=== PATIENT | female | born 1945 | race Caucasian/White ===

== ENCOUNTER 2016-10-26 10:44 | Inpatient (IN) ==
[2016-10-26] MEDS ORDERED: traMADol 50 MG TABLET PO PRN (11:36)
[2016-10-26] MEDS ORDERED: *HR* OxyCODONE Immed Rel 5 MG TABLET PO PRN ×2 (12:09)
[2016-10-26] MEDS: Metoprolol XL (24 HR) Succ 50 MG TAB.ER.24H PO SCH (13:50)
--- NOTE | 2016-10-26 15:52 | Internal Med History&Physical ---
Date of Encounter: 10/26/16 Time of Encounter: 15:25 Assessment and Plan (1) Arthritis of left knee Current visit: No Status: Acute Status post left TKR 10/23/2016. Continue therapy preventions (2) Hypertension Current visit: No Status: Chronic Continue metoprolol, Minipress and lisinopril. Qualifiers: Hypertension type: unspecified secondary hypertension Qualified Code(s): I15.9 - Secondary hypertension, unspecified; I15 - Secondary hypertension (3) Chronic renal failure, stage 3 (moderate) Current visit: No Status: Chronic We will monitor renal indices. (4) Acute blood loss anemia Current visit: No Status: Acute Preop hemoglobin was normal. Will discontinue aspirin and use Lovenox for DVT prophylaxis. Internal Medicine - H&P: HPI Chief complaint: Left knee replacement Admitted From: Hospital to Hospital Transfer Plans for Post Hospital Care: Home History of present illness: Ms. Parks is a 71 year old female who underwent left total knee replacement at [facility] 10/23/2016. Postop course was unremarkable and she was admitted to [facility] swing bed for rehabilitation therapy prior to returning home. Her orthopedic history is significant for diagnosis of gout. She denies previous orthopedic surgery. Past Med Surg Social Fam HX - Past Medical History Medical history: hypertension, renal disease Psychiatric history: no psych history - Past Surgical History Surgical History: orthopedic, other - Social History Smoking Status: Never smoker Smokeless Tobacco Status: No Alcohol use: none Drug use: none Internal Medicine - H&P: Meds Allopurinol [Zyloprim 100 MG] 100 mg PO BID 10/23/16 [History] Aspirin Enteric Coated [Aspirin EC] 325 mg PO DAILY #21 tablet. 10/23/16 [Rx] Calcium Carbonate/Vitamin D3 [Calcium 600 + Vit D Tablet] 1 tab PO DAILY [History] Cetirizine HCl [All Day Allergy] 10 mg PO DAILY 10/23/16 [History] Furosemide [Lasix] 20 mg PO DAILY PRN 10/23/16 [History] Metoprolol XL (24 HR) Succ [Toprol Xl] 50 mg PO 1200 10/23/16 [History] Prazosin HCl [Minipress] 2 mg PO BID 10/23/16 [History] Quinapril HCl [Accupril] 10 mg PO HS 10/23/16 [History] Tramadol HCl [Ultram] 50 mg PO TID PRN #30 tab 10/26/16 [Rx] Allergies latex Allergy (Verified 10/23/16 09:54) Hives TESTED NEGATIVE All Systems PM: A 10-system review of systems was performed and is negative for pertinent findings except as documented above in the HPI. Review of systems: Review of systems is obtained primarily from the family since the patient is lethargic. Gen.: Her weight has increased approximately 25 pounds in the past year felt to be due to inactivity Cardiovascular: She has history of hypertension but no known [place] heart failure angina DVT or pulmonary embolus Respiratory: She is a lifelong nonsmoker and has no known chronic lung disease GI: She denies disorders of her liver or exocrine pancreas. She has had cholecystectomy. 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 She has stress incontinence. She denies other kidney or bladder disorders. Neurologic: She denies large distribution strokes or seizures. Endocrine: She denies diabetes or thyroid disease or hyperlipidemia Hematology/oncology: She denies blood disorders cancers or anemia Psychiatric: She denies anxiety depression or other mental health issues Musk skeletal: As per history of present illness - Constitutional Vitals: Temp Pulse Resp BP Pulse Ox 99.8 F H 84 20 167/87 91 10/26/16 15:26 10/26/16 15:26 10/26/16 15:26 10/26/16 15:26 10/26/16 15:26 Exam: Gen.: She is a well-developed obese female who is lying in bed and appears in no acute distress HEENT: Head is atraumatic and normocephalic. Eyes: EOMI. There is no scleral icterus. Mouth: Mucosa is moist. Neck: Supple and nontender. There is no thyromegaly or adenopathy noted. Heart: Regular without murmurs gallops or ectopics. Lungs: No wheezes or crackles are heard. Abdomen: She has a large abdomen. It is nontender to palpation. Extremities: She is wearing a left knee immobilizer. She has trace to 1+ edema of the dorsum of the feet bilaterally. Dorsalis pedis and posterior tibial pulses are nonpalpable. Neurologic: Mental status: She is lethargic. She does awaken and answers a few questions correctly. Cranial nerves: Smile is symmetric. Forehead wrinkles bilaterally. Tongue protrudes midline. EOMI. Motor: There is no pronator drift. Cerebellar: Finger to nose is intact bilaterally. Skin: Warm and dry
[2016-10-26] MEDS: Cholecalciferol (D-3) 1,000 UNIT TABLET PO SCH (16:18)
[2016-10-26] MEDS: MOM Conc 10 ML UD.LIQ PO SCH (16:18)
[2016-10-26 17:35] LABS: Bilirubin,Urine Negative (Negative); Blood,Urine Moderate (Negative); Clarity,Urine Clear (Clear); Color,Urine Yellow (Yellow); Glucose,Urine (UA) Normal (Normal); Ketones,Urine Negative (Negative); Leukocyte Esterase,Urine Negative (Negative); Nitrite,Urine Negative (Negative); PH,Urine 5.5 pH Units (5.0-8.0); Protein,Urine 30 mg/dL (Neg-Trace); Urobilinogen,Urine Normal (Normal)
[2016-10-26 18:13] LABS: Amorphous Sediment,Urine Few (Few); Hyaline Casts,Urine Few per lpf (None-Few); Renal Epithelial Cells,Urine Few per hpf (None-Few); Squamous Epithelial Cell,Urine Few per lpf (None-Few); WBC,Urine 0-3 per hpf (0-3)
[2016-10-26] MEDS: *HR* Enoxaparin 30 MG/0.3 ML SYRINGE SQ SCH (21:06)
[2016-10-27 06:10] LABS: Basophils % 0.4 %; Eosinophils # 0.3 K/mcL (0.0-0.6); Eosinophils % 3.2 %; Hematocrit 25.5 % (35.3-44.9); Hemoglobin 8.5 g/dL (11.5-15.4); Immature Granulocytes % 0.6 % (0-4); Lymphocytes # 1.3 K/mcL (0.6-4.6); Lymphocytes % 12.1 %; Mean Corpuscular HGB Conc 33.3 g/dL (31.6-35.5); Mean Corpuscular Hemoglobin 31.1 pg (28.0-33.3); Mean Corpuscular Volume 93.4 fL (83.0-100.0); Mean Platelet Volume 10.2 fL (9.4-12.4); Monocytes # 1.1 K/mcL (0.0-1.3); Monocytes % 10.6 %; Neutrophils # 7.9 K/mcL (1.6-8.9); Platelet Count 318 K/mcL (140-400); Red Blood Count 2.73 M/mcL (3.82-4.97); Red Cell Distribution Width 14.9 % (11.5-14.5); Segmented Neutrophils % 73.1 %
[2016-10-27] MEDS: *HR* Enoxaparin 30 MG/0.3 ML SYRINGE SQ SCH ×2 (06:31→20:00)
[2016-10-27] MEDS ORDERED: traMADol 50 MG TABLET PO ONE (08:45)
[2016-10-27] MEDS: Cholecalciferol (D-3) 1,000 UNIT TABLET PO SCH (08:49)
[2016-10-27] MEDS: Loratadine 10 MG TABLET PO SCH (08:49)
[2016-10-27] MEDS ORDERED: NON-FORMULARY MEDICATION 1 EACH EACH (Calcium Carbonate/Vitamin D3 [Calcium 600 + Vit D Ta PO SCH (09:00)
[2016-10-27] MEDS ORDERED: Aspirin Enteric Coated 325 MG Tablet PO SCH (09:00)
[2016-10-27 10:18] LABS: % Iron Saturation 8 % (15-50); Iron 16 mcg/dL (50-170); Transferrin 139 mg/dL (180-382)
[2016-10-27 11:06] LABS: Ferritin 382 ng/ml (5-204)
[2016-10-27] MEDS: Metoprolol XL (24 HR) Succ 50 MG TAB.ER.24H PO SCH (11:29)
[2016-10-27] MEDS: traMADol 50 MG TABLET PO PRN (16:58)
[2016-10-28] MEDS: traMADol 50 MG TABLET PO PRN ×2 (08:39→15:14)
[2016-10-28] MEDS: Cholecalciferol (D-3) 1,000 UNIT TABLET PO SCH (08:39)
[2016-10-28] MEDS: Loratadine 10 MG TABLET PO SCH (08:39)
[2016-10-28] MEDS: Metoprolol XL (24 HR) Succ 50 MG TAB.ER.24H PO SCH (11:59)
[2016-10-28] MEDS: MOM Conc 10 ML UD.LIQ PO SCH (15:14)
[2016-10-29 05:41] LABS: Basophils # 0.1 K/mcL (0.0-0.2); Basophils % 0.8 %; Eosinophils # 0.3 K/mcL (0.0-0.6); Eosinophils % 3.6 %; Hematocrit 27.6 % (35.3-44.9); Hemoglobin 8.8 g/dL (11.5-15.4); Immature Granulocytes % 0.8 % (0-4); Lymphocytes # 1.5 K/mcL (0.6-4.6); Lymphocytes % 17.4 %; Mean Corpuscular HGB Conc 31.9 g/dL (31.6-35.5); Mean Corpuscular Hemoglobin 30.8 pg (28.0-33.3); Mean Corpuscular Volume 96.5 fL (83.0-100.0); Mean Platelet Volume 10.2 fL (9.4-12.4); Monocytes # 0.9 K/mcL (0.0-1.3); Monocytes % 10.3 %; Neutrophils # 5.7 K/mcL (1.6-8.9); Platelet Count 358 K/mcL (140-400); Red Blood Count 2.86 M/mcL (3.82-4.97); Red Cell Distribution Width 15.1 % (11.5-14.5); Segmented Neutrophils % 67.1 %
[2016-10-29] MEDS: Furosemide 20 MG TABLET PO PRN (05:53)
[2016-10-29] MEDS: *HR* Enoxaparin 40 MG/0.4 ML SYRINGE SQ SCH (05:53)
[2016-10-29] MEDS: traMADol 50 MG TABLET PO PRN ×3 (08:23→21:03)
[2016-10-29] MEDS: Loratadine 10 MG TABLET PO SCH (08:24)
[2016-10-29] MEDS: Cholecalciferol (D-3) 1,000 UNIT TABLET PO SCH (08:24)
[2016-10-29] MEDS: Metoprolol XL (24 HR) Succ 50 MG TAB.ER.24H PO SCH (12:56)
[2016-10-30] MEDS: traMADol 50 MG TABLET PO PRN (04:22)
[2016-10-30] MEDS: *HR* Enoxaparin 40 MG/0.4 ML SYRINGE SQ SCH (04:22)
[2016-10-30] MEDS: MOM Conc 10 ML UD.LIQ PO SCH (09:42)
[2016-10-30] MEDS: Cholecalciferol (D-3) 1,000 UNIT TABLET PO SCH (09:42)
[2016-10-30] MEDS: Loratadine 10 MG TABLET PO SCH (09:43)
[2016-10-30] MEDS: *HR* HYDROcodone/Acet 5/325 mg TABLET PO PRN ×2 (09:45→18:29)
[2016-10-30] MEDS: Metoprolol XL (24 HR) Succ 50 MG TAB.ER.24H PO SCH (12:27)
[2016-10-30] MEDS: *HR* Enoxaparin 30 MG/0.3 ML SYRINGE SQ SCH (16:37)
--- NOTE | 2016-10-30 16:57 | Internal Med Progress Note ---
Date of Encounter: 10/30/16 Time of Encounter: 16:45 - Assessment and plan (1) Arthritis of left knee Current Visit: No Status: Acute Assessment and plan: October 30. Status post left TKR 10/23/2016. Continue therapy interventions and analgesics. (2) Hypertension Current Visit: No Status: Chronic Assessment and plan: October 30. Continue metoprolol, Minipress, and lisinopril Qualifiers: Hypertension type: unspecified secondary hypertension Qualified Code(s): I15.9 - Secondary hypertension, unspecified; I15 - Secondary hypertension (3) Chronic renal failure, stage 3 (moderate) Current Visit: No Status: Chronic Assessment and plan: October 30. We will recheck renal indices in the a.m. (4) Acute blood loss anemia Current Visit: No Status: Acute Assessment and plan: October 30. We will check labs in a.m. - Subjective Interval history: October 30. She has no new complaints. The Kiran catheter remains in place after she was found to have postvoid residual more than 1000 mL on October 26. She was changed to [place] today for left knee pain control. - Constitutional Vitals: Temp Pulse Resp BP Pulse Ox 98.0 F 58 16 120/58 94 10/30/16 09:08 10/30/16 13:08 10/30/16 13:08 10/30/16 13:08 10/30/16 13:08 Exam: She is resting comfortably in bed eating supper. She has trace to 1+ edema of the dorsum of feet and lower legs bilaterally. Her affect is cheerful overall. I reviewed her medications and lab results. Internal Medicine: Result - Labs CBC & Chem 7: 10/29/16 05:08 Consult Discharge Plan - Plan Referrals: NO,PCP [Primary Care Provider] - 1 week
[2016-10-30] MEDS ORDERED: Mag Hydrox/Al Hydrox/Simeth 30 ML UDC PO PRN (18:13)
[2016-10-30] MEDS ORDERED: Ondansetron ODT 4 MG TAB.RAPDIS SL PRN (19:47)
[2016-10-31] MEDS: *HR* HYDROcodone/Acet 5/325 mg TABLET PO PRN ×4 (02:17→20:39)
[2016-10-31] MEDS: *HR* Enoxaparin 30 MG/0.3 ML SYRINGE SQ SCH ×2 (02:17→17:21)
[2016-10-31 07:14] LABS: Basophils # 0.1 K/mcL (0.0-0.2); Basophils % 0.7 %; Eosinophils # 0.3 K/mcL (0.0-0.6); Eosinophils % 3.6 %; Hematocrit 29.3 % (35.3-44.9); Hemoglobin 9.3 g/dL (11.5-15.4); Immature Granulocytes % 0.7 % (0-4); Lymphocytes # 1.6 K/mcL (0.6-4.6); Mean Corpuscular HGB Conc 31.7 g/dL (31.6-35.5); Mean Corpuscular Hemoglobin 30.3 pg (28.0-33.3); Mean Corpuscular Volume 95.4 fL (83.0-100.0); Mean Platelet Volume 9.7 fL (9.4-12.4); Monocytes # 0.7 K/mcL (0.0-1.3); Monocytes % 7.5 %; Platelet Count 428 K/mcL (140-400); Red Blood Count 3.07 M/mcL (3.82-4.97); Red Cell Distribution Width 14.8 % (11.5-14.5); Segmented Neutrophils % 69.5 %
[2016-10-31] MEDS: Loratadine 10 MG TABLET PO SCH (08:08)
[2016-10-31] MEDS: Furosemide 20 MG TABLET PO PRN (08:08)
[2016-10-31] MEDS: Cholecalciferol (D-3) 1,000 UNIT TABLET PO SCH (08:09)
[2016-10-31 09:46] LABS: Alanine Aminotransferase 48 Units/L (0-55); Albumin 2.7 g/dL (3.5-5.0); Albumin/Globulin Ratio 0.8 (1.1-2.2); Alkaline Phosphatase 163 Units/L (38-126); Aspartate Amino Transferase 48 Units/L (5-34); BUN/Creatinine Ratio 24 (6-26); Bilirubin,Total 0.8 mg/dL (0.2-1.2); Blood Urea Nitrogen 24 mg/dL (7-20); Calcium 9.3 mg/dL (8.6-10.8); Carbon Dioxide 28 mEq/L (19-29); Chloride 103 mEq/L (98-109); Globulin 3.3 g/dL (2.4-3.5); Glucose 104 mg/dL (70-99); Osmolality,Calculated 292 (280-300); Potassium 4.6 mEq/L (3.5-4.5); Sodium 139 mEq/L (136-145); Uric Acid 5.1 mg/dL (2.6-6.0); eGFR For African Americans > 60 (> 60); eGFR For Non-African Americans 54 (> 60)
[2016-10-31] MEDS: Metoprolol XL (24 HR) Succ 50 MG TAB.ER.24H PO SCH (12:11)
[2016-11-01] MEDS: *HR* HYDROcodone/Acet 5/325 mg TABLET PO PRN ×3 (01:00→12:53)
[2016-11-01] MEDS: MOM Conc 10 ML UD.LIQ PO SCH (09:36)
[2016-11-01] MEDS: Cholecalciferol (D-3) 1,000 UNIT TABLET PO SCH (09:37)
[2016-11-01] MEDS: Loratadine 10 MG TABLET PO SCH (09:37)
[2016-11-01] MEDS: *HR* Enoxaparin 30 MG/0.3 ML SYRINGE SQ SCH ×3 (09:46→18:05)
[2016-11-01] MEDS: Metoprolol XL (24 HR) Succ 50 MG TAB.ER.24H PO SCH (12:52)
[2016-11-01] MEDS: Methyl Salicylate/Menthol 28 GM TUBE TP PRN (13:38)
[2016-11-01] MEDS: *HR* OxyCODONE/APAP 5/325 TABLET PO PRN ×3 (15:01→21:56)
[2016-11-02] MEDS: *HR* OxyCODONE/APAP 5/325 TABLET PO PRN ×5 (02:40→23:01)
[2016-11-02] MEDS: *HR* Enoxaparin 30 MG/0.3 ML SYRINGE SQ SCH ×2 (06:10→18:32)
[2016-11-02] MEDS: Loratadine 10 MG TABLET PO SCH (06:44)
[2016-11-02] MEDS: Cholecalciferol (D-3) 1,000 UNIT TABLET PO SCH (10:44)
--- NOTE | 2016-11-02 11:43 | Internal Med Progress Note ---
Date of Encounter: 11/02/16 Time of Encounter: 11:30 - Assessment and plan (1) Arthritis of left knee Current Visit: No Status: Acute Assessment and plan: October 30. Status post left TKR 10/23/2016. Continue therapy interventions and analgesics. (2) Hypertension Current Visit: No Status: Chronic Assessment and plan: October 30. Continue metoprolol, Minipress, and lisinopril November 02. Blood pressures have drifted higher. Will increase lisinopril and continue metoprolol and Minipress present doses. Qualifiers: Hypertension type: unspecified secondary hypertension Qualified Code(s): I15.9 - Secondary hypertension, unspecified; I15 - Secondary hypertension (3) Chronic renal failure, stage 3 (moderate) Current Visit: No Status: Chronic Assessment and plan: October 30. We will recheck renal indices in the a.m. November 02. Creatinine improved to 1.01 on 10/31/2016. (4) Acute blood loss anemia Current Visit: No Status: Acute Assessment and plan: October 30. We will check labs in a.m. November 02. Hemoglobin improved to 9.3. - Subjective Interval history: October 30. She has no new complaints. The Kiran catheter remains in place after she was found to have postvoid residual more than 1000 mL on October 26. She was changed to [place] today for left knee pain control. November 02. She has no new complaints. The Kiran catheter was removed this morning. She saw [facility] this morning and received a good report. - Constitutional Vitals: Temp Pulse Resp BP Pulse Ox 98.3 F 70 14 181/84 98 11/02/16 06:38 11/02/16 06:38 11/02/16 06:38 11/02/16 06:38 11/02/16 06:38 Exam: She is resting comfortably in bed and appears in no acute distress. Her affect is cheerful. I reviewed her medications and lab results. Internal Medicine: Result - Labs CBC & Chem 7: 10/31/16 06:59 10/31/16 06:59 Consult Discharge Plan - Plan Referrals: NO,PCP [Primary Care Provider] - 1 week
[2016-11-02] MEDS: Metoprolol XL (24 HR) Succ 50 MG TAB.ER.24H PO SCH (12:37)
[2016-11-03] MEDS: *HR* OxyCODONE/APAP 5/325 TABLET PO PRN ×2 (02:55→08:27)
[2016-11-03] MEDS: Methyl Salicylate/Menthol 28 GM TUBE TP PRN (02:59)
[2016-11-03] MEDS: *HR* Enoxaparin 30 MG/0.3 ML SYRINGE SQ SCH (06:26)
[2016-11-03 06:39] VITALS: BP 162/78
[2016-11-03] MEDS: MOM Conc 10 ML UD.LIQ PO SCH ×2 (08:28→08:33)
[2016-11-03] MEDS: Loratadine 10 MG TABLET PO SCH (08:28)
[2016-11-03] MEDS: Cholecalciferol (D-3) 1,000 UNIT TABLET PO SCH (08:28)
[2016-11-03] MEDS: Metoprolol XL (24 HR) Succ 50 MG TAB.ER.24H PO SCH (11:38)
--- NOTE | 2016-11-03 11:47 | Discharge Summary ---
Date of Encounter: 11/03/16 Time of Encounter: 11:35 - Discharge Diagnosis (1) Arthritis of left knee Priority: Primary Status: Acute (2) Hypertension Priority: Secondary Status: Chronic Qualifiers: Hypertension type: unspecified secondary hypertension Qualified Code(s): I15.9 - Secondary hypertension, unspecified; I15 - Secondary hypertension (3) Chronic renal failure, stage 3 (moderate) Priority: Secondary Status: Chronic (4) Acute blood loss anemia Priority: Secondary Status: Acute - Discharge Medications Home Medications: Allopurinol [Zyloprim 100 MG] 100 mg PO BID 10/23/16 [History] Calcium Carbonate/Vitamin D3 [Calcium 600 + Vit D Tablet] 1 tab PO DAILY [History] Furosemide [Lasix] 20 mg PO DAILY PRN 10/23/16 [History] Metoprolol XL (24 HR) Succ [Toprol Xl] 50 mg PO 1200 10/23/16 [History] Prazosin HCl [Minipress] 2 mg PO BID 10/23/16 [History] Quinapril HCl [Accupril] 10 mg PO HS 10/23/16 [History] Tramadol HCl [Ultram] 50 mg PO TID PRN #30 tab 10/26/16 [Rx] Cetirizine HCl [All Day Allergy] 10 mg PO DAILY PRN #0 11/03/16 [Rx] Allergies/Adverse Reactions: Allergies latex Allergy (Verified 10/23/16 09:54) Hives TESTED NEGATIVE Date of admission: 10/26/16 10:49 Primary care physician: Aaron Ralph D.O. Consults: 10/26/16 11:21 Consult to Occupational Therapy [CONS] Routine Comment: evaluate, develop, and implement plan of care Reason for Consult: evaluate, develop, and implement plan of care Consult to Physical Therapy [CONS] Routine Comment: evaluate,develop, and implement of care Reason for Consult: evaluate,develop, and implement plan of care Consult to Registry Rn [CONS] Routine Reason for SW Consult: Discharge planning - Patient Status Disposition: Home Health Service Functional capacity at discharge: uses cane/walker Overall status at discharge: patient is progressing back to baseline - Discharge Instructions Follow Up With: Aaron Ralph DO [Non-Partnered Physician] - 1 week - Diet and Activity Activity: as per physical therapy Diet: low fat, low cholesterol Hospital course: Ms. Parks is a 71 year old female who underwent left total knee replacement at [facility] 10/23/2016. Postop course was unremarkable and she was admitted to [facility] swing bed for rehabilitation therapy prior to returning home. Initial orders written by the discharging physicians at [facility]. I saw her on October 26 and performed a swing bed history and physical. She progressed satisfactorily in therapy. On November 03 and was felt she was stable for discharge home. Aspirin was discontinued when hemoglobin was found to be 8.5 on October 27. She was placed on Lovenox for DVT prophylaxis and hemoglobin renetta to 9.3 by October 31. She will follow with her PCP Dr. Ralph within 1 week and with her orthopedists as directed. - Time Spent with Patient Total time spent providing and/or coordinating discharge services: - Constitutional Vitals: Temp Pulse Resp BP Pulse Ox 98.5 F 81 19 162/78 95 11/03/16 06:05 11/03/16 06:05 11/03/16 06:05 11/03/16 06:05 11/03/16 06:05
--- NOTE | 2016-11-03 11:53 | Physician Discharge Referral ---
Home Health/Hosp Referral Info Transfer to: Home Health Attending Provider: Rylan Provider in Charge Post Discharge: PCP (Aaron Ralph D.O.) - Diagnosis (1) Arthritis of left knee Priority: Primary Status: Acute (2) Hypertension Priority: Secondary Status: Chronic (3) Chronic renal failure, stage 3 (moderate) Priority: Secondary Status: Chronic (4) Acute blood loss anemia Priority: Secondary Status: Acute - Respiratory Orders Smoking Cessation: Smoking cessation has been advised. For more information, call the [place] Tobacco Quit Line at 3-356-LJYQ-NOW. - Diet/Nutrition Diet/Nutrition Orders: Regular - Activity Activity Orders: Walker - Services Needed Following services are medically necessary services: Nursing, Home Health Aide, Physical Therapy, Occupational Therapy - Transfer Medications Home Medications: Allopurinol [Zyloprim 100 MG] 100 mg PO BID 10/23/16 [History] Calcium Carbonate/Vitamin D3 [Calcium 600 + Vit D Tablet] 1 tab PO DAILY [History] Furosemide [Lasix] 20 mg PO DAILY PRN 10/23/16 [History] Metoprolol XL (24 HR) Succ [Toprol Xl] 50 mg PO 1200 10/23/16 [History] Prazosin HCl [Minipress] 2 mg PO BID 10/23/16 [History] Quinapril HCl [Accupril] 10 mg PO HS 10/23/16 [History] Tramadol HCl [Ultram] 50 mg PO TID PRN #30 tab 10/26/16 [Rx] Cetirizine HCl [All Day Allergy] 10 mg PO DAILY PRN #0 11/03/16 [Rx] Allergies/Adverse Reactions: Allergies latex Allergy (Verified 10/23/16 09:54) Hives TESTED NEGATIVE Certification: Further, I certify that my clinical findings support that this patient is homebound (i.e. absences from home require considerable and taxing effort and are for medical reasons or zoroastrian services or infrequently or short duration when for other reasons) because: Homebound Reason: Leaving home requires considerable and taxing effort due to condition (Impaired mobility secondary to recent left total knee replacement) Attestation: My signature below is to certify that this patient is under my care and that I, or nurse practitioner, or a physician's service assistant working with me, has a face-to -face encounter with this patient.
== END 2016-11-03 13:05 | disposition home health service (06) | DRG 560 ==
LOC: INPPIK 10:49
PROVIDERS: ADMIT Internal Medicine; ATTEND Internal Medicine